=== PATIENT | male | born 1935 | race Caucasian/White ===

== ENCOUNTER 2024-08-03 16:39 | Emergency (ER) | payer OTHER, SELFPAY ==
[2024-08-03 16:43] VITALS: BP 163/75
[2024-08-03 18:00] VITALS: BP 138/74
--- NOTE | 2024-08-03 18:57 | ED.GENMED ---
History of Present Illness
General
Chief Complaint: Eye Problems
Source: patient
Exam Limitations: none
Time Seen by Provider: 08/03/24 18:36
History of Present Illness
History of Present Illness:
89-year-old male insulin-dependent diabetic presents with itchy slightly painful rash of the right forehead and swelling to the upper lid. He denies any vision change. This was noticed this morning. No noted headache. No fever or cough that he
was aware of. He is accompanied by his daughter who lives with him. No other complaints at this time. They assumed this was an insect bite and gave Benadryl at home
Phy Exam
Physical Exam
Physical Exam:
General: Well-appearing male no acute respiratory distress
HEENT normocephalic atraumatic swelling noted of the upper lid of the right eye there is erythema noted in the periorbital area of the right eye with some vesicles noted to the lateral eyebrow and medial eyebrow as well as the upper lid.
Heart: Regular rate and rhythm
Lungs: Clear no wheeze
Extremities: No cyanosis
Course
Orders/Labs/Results
Orders:
Orders
08/03/24 18:54
Acetaminophen [Tylenol] 650 mg PO NOW STA
08/03/24 18:58
CT Orbits With Iv Contrast Urgent
Comment:
Reason For Exam: swelling right eye
08/03/24 19:19
Complete Blood Count/With Diff Urgent
Comprehensive Metabolic Panel Urgent
Blood Culture Q30M
RAMON Source: Blood/Venous
Specimen Description:
Blood Culture Q30M
RAMON Source: Blood/Venous
Specimen Description:
08/03/24 21:50
Cephalexin Monohydrate [Keflex] 500 mg PO NOW STA
08/03/24 21:50
Valacyclovir HCl [Valtrex] 1,000 mg PO NOW STA
Abnormal Lab Results
08/03/24
19:19
RBC 4.17 L 10^6/uL
(4.70-6.10)
MCV 96.9 H fL
(80.0-94.0)
MCH 32.4 H pg
(27.0-31.0)
Absolute Lymphs (auto) 0.7 L 10^3/uL
(1.2-3.4)
Immature Gran % 0.6 H %
(0-0.5)
Lymphocytes % 15.2 L %
(20.5-51.1)
Monocytes % 12.9 H %
(1.7-9.3)
Glucose 223 H mg/dl
(70-99)
08/03/24 19:19
08/03/24 19:19
Vital Signs
Initial and Last Documented VS:
Initial Vital Signs
Temp Pulse Resp BP Pulse Ox
101.5 F H 76 18 163/75 95
08/03/24 16:43 08/03/24 16:43 08/03/24 16:43 08/03/24 16:43 08/03/24 16:43
Last Documented Vital Signs
Temp Pulse Resp BP Pulse Ox
100.9 F H 79 18 138/74 95
08/03/24 18:00 08/03/24 18:00 08/03/24 18:00 08/03/24 18:00 08/03/24 18:58
MDM/Problems Addressed
Differential Diagnosis Includes:
Patient is febrile at triage with a temperature of 101.5. He has a rash around the right eye. Consideration could be herpes zoster versus periorbital cellulitis. Will check labs and blood culture. Will order CT scan of orbits to evaluate for
periorbital cellulitis. He is an insulin-dependent diabetic
*Pulse Oximetry
SaO2: 95
Oxygen Mode of Delivery: Room air
Patient hypoxic: no
*Critical Care Note
Total Time (30-74mins, 75-104mins- exclusive of procedures): Not Applicable
Update Note
Update Note:
I examined with Jackson lamp and fluorescein stain. There is no increased uptake to suggest any ulceration. The pupil is round and reactive to light. CT of the orbits was reviewed shows soft tissue swelling in the preseptal area consistent with
cellulitis. Labs reviewed with normal white count. Patient notes improvement since has been here. No indication for admission. Will cover for the potential for herpes zoster with Valtrex and Keflex for possible periorbital cellulitis. He was
advised to follow-up with ophthalmology. Stable for discharge
ED Attending Note
-
Portions of this chart may have been created with voice recognition software.� Occasional wrong word or��sound alike� substitutions may have occurred due to the inherent limitations of voice recognition software.
Discharge Plan
Departure
Patient Disposition: Home (Routine Discharge)
Date of Disposition: 08/03/24
Time of Disposition: 21:51
Patient with high blood pressure during this ER visit?: No
Discharge Problem:
possible shingles
Instructions: Cellulitis around the eye, Shingles
Prescriptions:
New
cephalexin 500 mg capsule
500 mg PO QID 7 Days Qty: 28 0RF
valacyclovir [Valtrex] 1 gram tablet
1,000 mg PO TID Qty: 21 0RF
Referrals:
UNKNOWN - PT DOES,NOT KNOW [Family Provider]
Activity Restrictions/Additional Instructions:
You may continue with cool compresses and/or Benadryl if needed. Use Valtrex box as directed. Turn if worse otherwise follow-up with your eye doctor
Interventions
Interventions:
*Risk Screen - Suicide Last Done: 08/03/24 16:43
*Neglect/Abuse Screening Last Done: 08/03/24 16:43
Discharge Date and Time
Print Language: FRISIAN
[2024-08-03 19:29] VITALS: BMI 32.1
[2024-08-03] MEDS: TYLENOL 650 MG PO (19:30)
[2024-08-03 19:32] LABS: % Basophils 0.8 % (0-2); % Immature Granulocytes 0.6 % (0-0.5); % Lymphocytes 15.2 % (20.5-51.1); % Monocytes 12.9 % (1.7-9.3); % Neutrophils 68.5 % (42.2-75.2); Absolute Eosinophils 0.1 10^3/uL (0-0.7); Absolute Lymphocytes 0.7 10^3/uL (1.2-3.4); Absolute Monocytes 0.6 10^3/uL (0.1-0.6); Absolute Neutrophils 3.3 10^3/uL (1.4-6.5); Hematocrit 40.4 % (39.0-52.0); Hemoglobin 13.5 g/dL (13.0-18.0); Mean Corp Hgb Conc. 33.4 g/dL (33.0-37.0); Mean Corpuscular Hgb 32.4 pg (27.0-31.0); Mean Corpuscular Volume 96.9 fL (80.0-94.0); Mean Platelet Volume 9.1 fL (7.4-10.4); Nucleated Red Blood Cells % 0 % (-); Platelet Count 222 10^3/uL (130-400); Red Blood Cell Count 4.17 10^6/uL (4.70-6.10); Red Cell Dist. Width 13.3 % (11.5-14.5); White Blood Cell Count 4.9 10^3/uL (4.8-10.8)
[2024-08-03 19:45] LABS: ALT (SGPT) 28 U/L (0-50); AST (SGOT) 30 U/L (17-59); Albumin 4.4 g/dl (3.5-5.0); Alkaline Phosphatase 120 U/L (38-126); Blood Urea Nitrogen 15 mg/dl (9-20); Calcium 9.3 mg/dl (8.4-10.2); Carbon Dioxide 23 mmol/L (22-30); Chloride 107 mmol/L (98-107); Estimated Creatinine Clearance 62 ml/min; Glucose 223 mg/dl (70-99); Potassium 4.2 mmol/L (3.5-5.1); Sodium 139 mmol/L (135-145); Total Bilirubin 0.7 mg/dl (0.2-1.3); eGFR > 60.00
[2024-08-03] MEDS: VALTREX 1000 MG PO (22:22)
[2024-08-03] MEDS: KEFLEX 500 MG PO (22:22)
[2024-08-03 22:28] VITALS: BP 140/72
== END 2024-08-03 22:30 | disposition home or self-care (01) ==
LOC: EMR 16:39
PROVIDERS: Physician Assistant; EMERGENCY PHYSICIAN Emergency Medicine
DX: R21 Rash and other nonspecific skin eruption (principal); M79.89 Other specified soft tissue disorders; L03.213 Periorbital cellulitis; H57.89 Other specified disorders of eye and adnexa
CPT/HCPCS: 99284; 70481; 80053; 85025; 87040; Q9967

== ENCOUNTER 2024-08-05 20:24 | Emergency (ER) | payer OTHER, SELFPAY ==
[2024-08-05 20:28] VITALS: BP 135/76
[2024-08-05 20:54] LABS: Hematocrit 37.2 % (39.0-52.0); Hemoglobin 12.7 g/dL (13.0-18.0); Mean Corp Hgb Conc. 34.1 g/dL (33.0-37.0); Mean Corpuscular Volume 95.1 fL (80.0-94.0); Platelet Count 185 10^3/uL (130-400); Red Cell Dist. Width 13.3 % (11.5-14.5)
[2024-08-05 21:09] LABS: ALT (SGPT) 28 U/L (0-50); AST (SGOT) 31 U/L (17-59); Albumin 3.8 g/dl (3.5-5.0); Alkaline Phosphatase 117 U/L (38-126); Blood Urea Nitrogen 18 mg/dl (9-20); Calcium 9.2 mg/dl (8.4-10.2); Carbon Dioxide 22 mmol/L (22-30); Chloride 108 mmol/L (98-107); Glucose 129 mg/dl (70-99); Potassium 3.7 mmol/L (3.5-5.1); Sodium 137 mmol/L (135-145); Total Protein 7.2 g/dl (6.3-8.2); eGFR 57.81
[2024-08-05 21:40] LABS: Nucleated Red Blood Cells % 0 % (-)
--- NOTE | 2024-08-06 01:22 | ED.GENMED ---
History of Present Illness
General
Chief Complaint: Skin Problem
Source: patient, family (Daughter at bedside), previous radiology exam (CT of the orbits performed 2 days ago) and previous hospital records (ED visit for similar complaint August 03.)
Exam Limitations: none
Time Seen by Provider: 08/06/24 00:56
Nursing documentation reviewed up to this point in time: agreed with
History of Present Illness
History of Present Illness:
This is an 89-year-old gentleman who resides at home with his daughter. He has history of insulin-dependent diabetes and initially presented to this ED August 03 with complaints of a slightly itchy, slightly painful rash right forehead, right upper
eyelid as well as right periorbital swelling and redness. Noted to have a fever 101 �F. Laboratory studies were unremarkable. CT of the orbits showed mild right preseptal cellulitis. No evidence of drainable fluid collection/abscess.
Patient denied eye pain/irritation nor vision changes and continues to deny eye pain nor irritation nor drainage. Fluorescein stain and Jackson lamp exam during that ED visit was unremarkable�no evidence of keratitis.
He was started on 1 week course of Keflex for potential cellulitis as well as Valtrex for potential herpes zoster.
He returns tonight with concern for development of black crusting over the prior ulcerated skin lesions right forehead, right upper eyelid and also noted a few small crusted dry ulcerations right frontal scalp region.
Right periorbital redness and swelling has markedly improved. He continues to deny eye pain nor irritation nor drainage. Fever has dissipated.
Past History
Past History
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
ED Past Surgical History: Orthopedic and Urological
Social History
Tobacco: Non-smoker
Alcohol: None
Personal:
Living: with family
Employment: Retired
Family History
Family History: Other (Noncontributory)
Phy Exam
Physical Exam
Physical Exam:
GENERAL: 89-year-old gentleman appears his stated age, bright and alert, pleasant, appears in no acute distress. Seated in a wheelchair. Daughter is accompanying.
EYE: pupils equal and reactive. Extraocular muscles intact. There is no conjunctival injection, no tearing nor discharge. There is a crusted superficial ulcer mid aspect of the right upper lid with very minimal erythema and edema of the upper
lid. Very minimal pinkish erythema and minimal edema of the lower lid. There are scattered grouped crusted superficial plaques right forehead, right frontal scalp, right temporal scalp with mild surrounding erythema.
NECK: Supple, nontender, no meningismus, no significant adenopathy.
ENT: posterior pharynx is clear, oral mucosa is moist. TM clear b/l, nares patent.
CARDIAC: Regular rate and rhythm. no murmur.
LUNGS: Clear breath sounds bilaterally, no acute respiratory distress, no wheezes/rales/rhonchi
ABDOMEN: Soft, nondistended, without focal tenderness
NEUROLOGICAL: Alert and oriented x3, no focal neuro deficits.
SKIN: Warm and dry, normal color, good turgor.
MUSCULOSKELETAL: No C/C/E. peripheral pulses are full and equal b/l. No palpable tenderness.
PSYCH: Normal and appropriate interaction.
Course
Orders/Labs/Results
Orders:
Orders
08/05/24 20:45
Complete Blood Count/With Diff Urgent
Comprehensive Metabolic Panel Urgent
08/06/24 01:24
Trifluridine [Viroptic 1% Eye Drops] See Dose Instructions OPHTH NOW STA
Abnormal Lab Results
08/05/24
20:45
RBC 3.91 L 10^6/uL
(4.70-6.10)
Hgb 12.7 L g/dL
(13.0-18.0)
Hct 37.2 L %
(39.0-52.0)
MCV 95.1 H fL
(80.0-94.0)
MCH 32.5 H pg
(27.0-31.0)
Absolute Monos (auto) 0.9 H 10^3/uL
(0.1-0.6)
Immature Gran % 0.7 H %
(0-0.5)
Monocytes % 15.5 H %
(1.7-9.3)
Chloride 108 H mmol/L
(98-107)
Glucose 129 H mg/dl
(70-99)
08/05/24 20:45
08/05/24 20:45
Vital Signs
Initial and Last Documented VS:
Initial Vital Signs
Temp Pulse Resp BP Pulse Ox
99.0 F 82 20 135/76 97
08/05/24 20:28 08/05/24 20:28 08/05/24 20:28 08/05/24 20:28 08/05/24 20:28
Last Documented Vital Signs
Temp Pulse Resp BP Pulse Ox
99.0 F 68 18 120/58 97
08/05/24 20:28 08/06/24 01:29 08/06/24 01:29 08/06/24 01:29 08/06/24 01:33
MDM/Problems Addressed
Differential Diagnosis Includes:
History and exam consistent with herpes zoster V1 distribution right forehead.
Reassuring that periorbital erythema and swelling have markedly improved and discussed with patient and family that crusting is normal healing process.
Due to V1 distribution including upper eyelid he is at risk for corneal involvement thus will add Viroptic eyedrops.
Recommend he finish Valtrex and continue Keflex for potential secondary bacterial infection that overall is improving.
Laboratory studies are again reassuring with low normal white blood cell count.
Chemistries are reassuring as well.
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 Recommend prompt/urgent follow-up if eye irritation occurs.
I also recommend Shingrix vaccination series. Recommend initiation of this in perhaps 3 to 4 months.
Return precautions discussed.
Chronic conditions affecting care: DM and HTN
*Pulse Oximetry
SaO2: 97
Oxygen Mode of Delivery: Room air
Patient hypoxic: no
*Critical Care Note
Total Time (30-74mins, 75-104mins- exclusive of procedures): Not Applicable
ED Attending Note
-
Portions of this chart may have been created with voice recognition software.� Occasional wrong word or��sound alike� substitutions may have occurred due to the inherent limitations of voice recognition software.
Discharge Plan
Departure
Patient Disposition: Home (Routine Discharge)
Date of Disposition: 08/06/24
Time of Disposition: :22
Patient with high blood pressure during this ER visit?: No
Condition: Good
Discharge Problem:
herpes zoster dermatitis right forehead
Instructions: How to Use Eye Drops and Eye Ointment ED, Shingles
Prescriptions:
No Action
cephalexin 500 mg capsule
500 mg PO QID 7 Days Qty: 28 0RF
valacyclovir [Valtrex] 1 gram tablet
1,000 mg PO TID Qty: 21 0RF
Referrals:
Dorothy Espinal DO [Family Provider, Family Practice] - Call in 1-3 days for appt
Activity Restrictions/Additional Instructions:
Continue cephalexin and valacyclovir until finished.
I have added an antiviral eyedrop. Put 1 drop in right eye every 2 hours while awake over the next 2 days then 1 drop 4 times daily for an additional 5 days.
Follow-up with your harvest contractor as already scheduled�sooner more urgent appointment if you develop right eye irritation/pain.
Interventions
Interventions:
*Risk Screen - Suicide Last Done: 08/05/24 20:28
*General Assessment Last Done: 08/05/24 20:28
*Neglect/Abuse Screening Last Done: 08/05/24 20:28
*ED- Fall Risk Assessment Last Done: 08/05/24 23:26
*ED COVID-19 Vaccine History Last Done: 08/05/24 23:26
*Nursing Disposition Last Done: 08/06/24 01:37
ED-Skin Assessment Last Done: 08/05/24 23:26
Discharge Date and Time
Discharge Date/Time: 08/06/24 01:37
Print Language: ARABIC
[2024-08-06 01:29] VITALS: BP 120/58
[2024-08-06] MEDS: VIROPTIC 1% EYE DROPS 1 DROP OPHTH (01:32)
== END 2024-08-06 01:37 | disposition home or self-care (01) ==
LOC: EMR 20:24
PROVIDERS: Student in an Organized Health Care Education/Training Program; EMERGENCY PHYSICIAN Emergency Medicine; FAMILY PHYSICIAN Family Medicine
DX: B02.8 Zoster with other complications (principal); L30.9 Dermatitis, unspecified; I12.9 Hypertensive chronic kidney disease with stage 1 through stage 4 chronic kidney disease, or unspecified chronic kidney disease; E11.22 Type 2 diabetes mellitus with diabetic chronic kidney disease; N18.2 Chronic kidney disease, stage 2 (mild); E78.00 Pure hypercholesterolemia, unspecified; Z79.4 Long term (current) use of insulin
CPT/HCPCS: 99283; 80053; 85025